=== PATIENT | male | born 1955 | race Caucasian/White ===

== ENCOUNTER → 2020-06-23 | Day surgery (SDC) | payer BC ==
[2020-06-20 12:31] LABS: BASOPHILS # (AUTO) 0.1 (0.0-0.1); EOSINOPHILS # (AUTO) 0.3 (0.0-0.4); EOSINOPHILS % 4.5 % (0.0-6.0); HEMATOCRIT 42.3 % (38.2-49.6); HEMOGLOBIN 13.4 g/dL (14.0-18.0); LYMPHOCYTES # (AUTO) 1.8 (1.0-3.2); LYMPHOCYTES % 24.1 % (18.0-39.1); MEAN CORPUSCULAR HEMOGLOBIN 29.2 pg (28-32); MEAN CORPUSCULAR HGB CONC 31.7 g/dL (31-35); MEAN CORPUSCULAR VOLUME 92.2 fL (81-99); MONOCYTES # (AUTO) 0.7 (0.2-0.8); MONOCYTES % 9.8 % (4.4-11.3); NEUTROPHILS # (AUTO) 4.4 (2.1-6.9); NEUTROPHILS % 60.2 % (38.7-80.0); PLATELET COUNT 230 x10e3/uL (140-360); RED BLOOD COUNT 4.59 x10e6/uL (4.3-5.7); RED CELL DISTRIBUTION WIDTH 13.6 % (11.7-14.4)
[2020-06-20 13:05] LABS: ALANINE AMINOTRANSFERASE 26 IU/L (0-55); ALBUMIN 3.7 g/dL (3.5-5.0); ALBUMIN/GLOBULIN RATIO 1.1 (0.8-2.0); ALKALINE PHOSPHATASE 77 IU/L (40-150); ANION GAP 10.7 mmol/L (8-16); BLOOD UREA NITROGEN 19 mg/dL (7-26); BUN/CREATININE RATIO 17 (6-25); CALCIUM 8.6 mg/dL (8.4-10.2); CARBON DIOXIDE 28 mmol/L (22-29); CHLORIDE 106 mmol/L (98-107); EST GLOMERULAR FILTRATION RATE > 60 ML/MIN (60-); GLUCOSE 103 mg/dL (74-118); POTASSIUM 3.7 mmol/L (3.5-5.1); SODIUM 141 mmol/L (136-145)
[2020-06-20 13:44] LABS: INR 0.89; PROTHROMBIN TIME 12.5 seconds (11.9-14.5)
[~2020-06-23] VITALS: Ht 175.3 cm; Wt 73.9 kg
[2020-06-23] VITALS (14 sets, daily range): BP systolic 112–168; BP diastolic 63–96
[~2020-06-23] MED LIST: FENTANYL CITRATE/PF 100MCG/2 ML INJ ONE; HEPARIN SOD/SOD CHLORIDE 2,000 ML ONE; IBUPROFEN200 MG PO; IOPAMIDOL 300MG/ML 100 ML INFUS..BTL IV ONE; LIDOCAINE HCL 2% LOCAL 20 ML VIAL ONE; MIDAZOLAM HCL 2 MG/2 ML VIAL ONE; SODIUM CHLORIDE 0.9% 1000ML 1,000 ML ONE; VERAPAMIL HCL 2.5 MG/ML 2 ML VIAL ONE
== END | disposition home or self-care (01) ==
LOC: CATH LAB 07:23
PROVIDERS: ATTEND Internal Medicine Cardiovascular Disease
DX: I70.212 Atherosclerosis of native arteries of extremities with intermittent claudication, left leg (principal); I87.2 Venous insufficiency (chronic) (peripheral); Z88.0 Allergy status to penicillin; Z01.812 Encounter for preprocedural laboratory examination; Z20.822 Contact with and (suspected) exposure to COVID-19
CPT/HCPCS: 36415; 37229; 75625; 80053; 85025; 85610; C1724; C1725; C1760; C1769 ×4; C1887 ×2; J2001; J2250; J3010; J7030; Q9967; U0002; 36247; 37228; 99152; 99153

== ENCOUNTER 2025-01-07 07:04 | Day surgery (SDC) | payer BC ==
[2025-01-04 12:48] LABS: BASOPHILS % 0.8 % (0.0-1.0); EOSINOPHILS % 3.7 % (0.0-6.0); LYMPHOCYTES % 26.6 % (18.0-39.1); MONOCYTES % 9.1 % (4.4-11.3); NEUTROPHILS % 59.4 % (38.7-80.0); RED CELL DISTRIBUTION WIDTH 13.7 % (11.7-14.4)
[2025-01-04 13:06] LABS: INR 0.85
[2025-01-04 13:13] LABS: EST GLOMERULAR FILTRATION RATE 63.0 ML/MIN (>=60)
[2025-01-07] VITALS (10 sets, daily range): BP systolic 125–141; BP diastolic 68–84; PULSE 54–72; RESP 10–19; TEMP 97–97.1; O2SAT 98–100
[~2025-01-07] VITALS: Ht 175.3 cm; Wt 70.1 kg
[~2025-01-07 07:04] MED LIST changes: +ALPRAZOLAM0.25 M1 PO; +BENICAR20 MG PO; +CIALIS5 MG PO; +CLOTRIMAZOLE-BE15 GM TOP; -FENTANYL CITRATE/PF 100MCG/2 ML INJ ONE; -HEPARIN SOD/SOD CHLORIDE 2,000 ML ONE; -IOPAMIDOL 300MG/ML 100 ML INFUS..BTL IV ONE; -LIDOCAINE HCL 2% LOCAL 20 ML VIAL ONE; -MIDAZOLAM HCL 2 MG/2 ML VIAL ONE; -SODIUM CHLORIDE 0.9% 1000ML 1,000 ML ONE; -VERAPAMIL HCL 2.5 MG/ML 2 ML VIAL ONE
[2025-01-07] MEDS ORDERED: HEPARIN SOD (PORCINE) 1000 UNIT/ML 30ML ONE (09:08)
[2025-01-07] MEDS ORDERED: VERAPAMIL HCL 2.5 MG/ML 2 ML VIAL ONE (09:08)
[2025-01-07] MEDS ORDERED: IOPAMIDOL 370 MG/ML 100 ML INFUS..BTL INJ ONE (09:09)
[2025-01-07] MEDS ORDERED: SODIUM CHLORIDE 0.9% 1000ML 2,000 ML ONE (09:09)
[2025-01-07] MEDS ORDERED: LIDOCAINE HCL 2% LOCAL 20 ML VIAL ONE (09:09)
[2025-01-07] MEDS ORDERED: HEPARIN SOD/SOD CHLORIDE 2,000 ML ONE (09:09)
[2025-01-07] MEDS ORDERED: NITROGLYCERIN/D5W 200 MCG/ML 250 ML ONE (09:10)
[2025-01-07] MEDS ORDERED: FENTANYL CITRATE/PF 100MCG/2 ML INJ ONE (09:48)
[2025-01-07] MEDS ORDERED: MIDAZOLAM HCL 2 MG/2 ML VIAL ONE ×2 (09:48→09:59)
== END 2025-01-07 12:45 | disposition home or self-care (01) ==
LOC: CATH LAB 07:04
PROVIDERS: ATTEND Internal Medicine Cardiovascular Disease
DX: I70.203 Unspecified atherosclerosis of native arteries of extremities, bilateral legs (principal); R07.2 Precordial pain; E78.5 Hyperlipidemia, unspecified; F17.210 Nicotine dependence, cigarettes, uncomplicated; Z01.812 Encounter for preprocedural laboratory examination; Z79.899 Other long term (current) drug therapy
CPT/HCPCS: 36246; 36415; 76937; 80053; 85025; 85610; C1760; C1769 ×3; C1894; J1644; J2003; J2250; J3010; J7030; Q9967; 75630; 75716; 99152